=== PATIENT | female | born 1960 | race Two or more races ===

== ENCOUNTER → 2020-08-01 | Outpatient (CLI) | payer OTHER | LOC: MRI 09:39 | PROVIDERS: ATTEND Specialist | DX: M47.22 Other spondylosis with radiculopathy, cervical region (principal) | CPT/HCPCS: 72141 ==

== ENCOUNTER → 2021-02-12 | Outpatient (CLI) | payer OTHER | LOC: MRI 07:31 | PROVIDERS: ATTEND Family Medicine | DX: M47.26 Other spondylosis with radiculopathy, lumbar region (principal) | CPT/HCPCS: 72148 ==